=== PATIENT | female | born 1980 | race Caucasian/White ===

== ENCOUNTER 2020-08-04 15:09 | Outpatient (REF) | payer OTHER, SELFPAY ==
--- NOTE | 2020-08-04 10:40 | PAPFT_PTH ---
PATIENT: Alicja Kaminski [id number] AGE/SX: 40/F ROOM: RE08/04/[address]: King Mancia : 1980 BED: DIS: 08/04/2020 SPEC #: [id number] RECD: 08/04/20 17:41 STATUS: DONNY REJw #: [id number] NENO: 08/04/20 10:[address]: King Mancia DEPT: COUNT INCLUDES THE [facility] Cytology RECD BY: Safia Mondragon Tissues: 1 - CX/ENDOCX FOR PAP SMEARS Procedures: PAP THIN PREP/UVM Screening HPV DNA PROBE Comments: [id number]
== END 2020-08-04 15:10 | disposition home or self-care (01) ==
LOC: NCHCN 15:09
PROVIDERS: PCP Physician Assistant Medical; Visit Provider Physician Assistant Medical
DX: Z12.4 Encounter for screening for malignant neoplasm of cervix (principal); Z11.51 Encounter for screening for human papillomavirus (HPV)
CPT/HCPCS: 88142; 87624

== ENCOUNTER 2020-08-31 02:14 | Outpatient (CLI) | payer OTHER, SELFPAY ==
--- NOTE | 2020-08-31 08:50 | DI.MAMMO_ITS ---
EXAM: MG MAMMO SCREENING CLINICAL HISTORY: SCREENING, FORMERLY [facility], 1928–1983,Z00.00,H/O PHYLLODES TUMOR TECHNIQUE: Bilateral full field digital CC and MLO mammographic images were obtained with 3D tomosyn thesis and utilizing computer aided detection (CAD). COMPARISON: Available for comparison. FINDINGS: Masses/Architectural Distortion: There is an asymmetry in the axillary region of the right breast on the MLO view. The patient is status post left lumpectomy. Microcalcifications: No suspicious pleomorphic-type are seen. Skin Thickening/Nipple Retraction: None. IMPRESSION: 1. Asymmetry in the posterior superior right breast on the MLO view. 2. Further evaluation with a spot compression views requested. Ultrasound may be indicated at that t taylor. BI-RADS Category 0 - Assessment Incomplete: Need additional imaging evaluation Breast Density - Category C - Heterogeneously dense Breast density category C or D implies that the patient has dense breast tissue. Dense breast tissue is very common and is not abnormal but dense breast tissue can make it harder to find cancer on a ma mmogram. Also, dense breast tissue may increase their breast cancer risk. This information about the result of the mammogram report was provided to the patient to raise their awareness. Use this report when you speak with the patient about their risks for breast cancer, which includes their family hist ory. At that time, you may recommend for more screening tests (Ultrasound or MRI) as they might be us eful based on their risk. A negative radiographic report should not delay biopsy if a dominant or clinically suspicious mass is present. Up to ten percent of cancers are not identified on mammography. A negative report may reinforce clinical impression. Adenosis and dense breasts may obscure an underlying neoplasm. False positive reports average 6 to 10%. Patient will receive a letter notifying them of these results.
== END 2020-08-31 02:34 ==
PROVIDERS: PCP Physician Assistant Medical; Visit Provider Physician Assistant Medical
DX: Z12.31 Encounter for screening mammogram for malignant neoplasm of breast (principal); Z00.00 Encounter for general adult medical examination without abnormal findings; R92.8 Other abnormal and inconclusive findings on diagnostic imaging of breast
CPT/HCPCS: 77063; 77067

== ENCOUNTER 2020-09-06 02:16 | Outpatient (CLI) | payer OTHER, SELFPAY ==
--- NOTE | 2020-09-06 | DI.US_ITS ---
EXAM: MG MAMMO SCREEN CALL BACK UNI and U/S breast RT limited CLINICAL HISTORY: F/U MAMMO, RT BREAST ASYMMETRY POSTERIOR SUPERIOR RT BREAST. TECHNIQUE: Craniocaudal and mediolateral oblique Full Field Digital Mammography views of the right b reast with Computer Aided Diagnosis followed by Tomosynthesis and right breast ultrasound. COMPARISON: Previous for comparison. FINDINGS: Mammography/Tomosynthesis: Masses/Architectural Distortion: None seen. Microcalcifictions: No suspicious pleomorphic-type are seen. Skin Thickening/Nipple Retraction: None. Right breast US: Echotexture: Normal appearance of the glandular tissue. Shadowing: No suspicious foci. Cyst: There is a cluster of cysts seen at the 9 o'clock position of the right breast 5 cm from the ni pple measuring 0.8 cm in aggregate. No internal blood flow is seen. Solid lesions: There is an ovoid hypoechoic mass seen at the 1 o'clock position of the right breast 8 cm from the nipple. Some of the borders have an irregular contour. It measures 0.8 x 0.6 x 0.8 cm. There does appear to be a small amount of internal blood flow. No posterior acoustic enhancement o r shadowing is seen. Ductal dilation: None. IMPRESSION: 1. 0.8 cm hypoechoic mass in the right breast at the 1 o'clock position 8 cm from the nipple. 2. Biopsy should be considered for further evaluation. 3. The findings were discussed with the patient and primary care physician on the date of the examina tion. BI-RADS Category 4 - Suspicious Abnormality: Biopsy should be considered Breast Density - Category C - Heterogeneously dense Breast density Category C or D implies that the patient has dense breast tissue. Dense breast tissue can make it harder to find cancer on a mammogram. Dense breast tissue is also associated with an incr eased risk of breast cancer. This information about the result of the mammogram report was provided to the patient to raise their awareness. Use this report when you speak with the patient about their risks for breast cancer, which includes their family history. At that time, you may recommend additional screening tests (Ultrasoun d or MRI) as these tests may add significant information. A negative radiographic report should not delay biopsy if a dominant or clinically suspicious mass is present. Up to ten percent of cancers are not identified on mammography. A negative report may reinforce clinical impression. Adenosis and dense breasts may obscure an underlying neoplasm. False positive reports average 6 to 10%. Patient will receive a letter notifying them of these results.
== END 2020-09-06 02:36 ==
PROVIDERS: PCP Physician Assistant Medical; Visit Provider Physician Assistant Medical
DX: Z12.31 Encounter for screening mammogram for malignant neoplasm of breast (principal); R92.8 Other abnormal and inconclusive findings on diagnostic imaging of breast; N63.12 Unspecified lump in the right breast, upper inner quadrant
CPT/HCPCS: 76642; 77063; 77067

== ENCOUNTER 2020-09-12 01:13 | Outpatient (CLI) | payer OTHER, SELFPAY ==
--- NOTE | 2020-09-12 | DI.US_ITS ---
EXAM: US NEEDLE LOCAL BREAST WO RAD CLINICAL HISTORY: RT BREAST MASS, ULTRASOUND GUIDED CORE BX TECHNIQUE: Ultrasound performed using standard protocol. COMPARISON: US US BREAST RT LIMITED from 09/06/2020 FINDINGS: Ultrasound guidance was provided for right breast biopsy performed by Dr. Duong. Please see Dr. Angel manzano procedure note. IMPRESSION: DATA REPOSITORY:
--- NOTE | 2020-09-12 10:55 | BREAST_PTH ---
PATIENT: Alicja Kaminski LOC: [facility] U#:[id number] AGE/SX: 40/F ROOM: RE09/12/[address]: Jamaica Duong MD : 1980 BED: DIS: 09/12/2020 SPEC #: [id number] RECD: 09/12/20 12:50 STATUS: DONNY REQ #: [id number] NENO: 09/12/20 10:[address]: Jamaica Duong DEPT: Surgical Specimen RECD BY: Safia Mondragon ENTERED: 09/12/20 12:50 SP TYPE: Breast OTHR DR: King Mancia Tissues: 1 - BREAST BX NEEDLE Procedures: GROSS AND MICRO LEVEL 4 Comments: [id number]
--- NOTE | 2020-09-12 12:12 | HPE_ITS ---
Date of service: 09/12/20 Time of Service: 12:12 Assessment and Plan Assessment and plan (1) Abnormal mammogram of right breast: Status: Acute Assessment and plan: Mrs. 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 Ultrasound was done and showed an irregular mass with some blood flow at the 1 o'clock position about 8 cm from the nipple. Patient is here in radiology today for core needle biopsy under ultrasound guidance. Risks, benefits, complications were reviewed with her and she wished to proceed. No guarantees were given or implied. Please see procedure note History of Present Illness History of Present Illness Chief Complaint: Right Breast mass Narrative: Mrs. Ta is a pleasant 40 year old female who is referred for a breast biopsy af ter having an abnormal mammogram and ultrasound done. The ultrasound showed some benign-appearing cysts and a irregular mass at 1:00 8 cm from the nipple of the right breast. 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 She underwent 2 surgeries to remove it completely. Phyllodes tumors to have a high risk of recurrence but usually in the same breast. She denies any nipple discharge, skin changes or pain in the right breast. She is unable to find or palpate the lesion. Review of Systems Constitutional Constitutional: Denies fever(s), Denies headache(s), Denies poor appetite and Denies weight loss Eyes Eyes: Denies change in vision ENT Ears, Nose, Mouth, and Throat: Denies headache(s) and Denies hoarseness Cardiovascular Cardiovascular: Denies chest pain, Denies irregular heart rhythm, Denies palpitations and Denies dyspnea Respiratory Respiratory: Denies cough and Denies dyspnea Gastrointestinal Gastrointestinal: Reports system reviewed and no additional complaints, except as documented Genitourinary Genitourinary: Reports system reviewed and no additional complaints, except as documented Neurologic Neurologic: Denies headache(s) Endocrine Endocrine: Reports system reviewed and no additional complaints, except as documented and Denies palpitations FOR[facility]LY [facility] Medical History (Updated 09/12/20 @ 12:22 by Jamaica Duong MD) Family history of colon cancer Hip pain, left 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 Surgical History (Updated 09/12/20 @ 12:19 by Jamaica Duong MD) History of lumpectomy of left breast Family History (Updated 09/12/20 @ 12:20 by Jamaica Duong MD) Other Colon cancer Social History (Updated 09/12/20 @ 12:20 by Jamaica Duong MD) Smoking/Tobacco Use Status: Never Smoking risk assessment performed?: Yes Alcohol Intake: current Alcohol Intake frequency: a few times a week Drug use: Never Female Reproductive History Menstrual Age of Menarche: 12 Exam Const General: cooperative, comfortable and no acute distress Orientation: alert and oriented x3 HENMT Head: normocephalic and atraumatic Chest Chest: normal inspection of the chest Breast inspection: normal inspection of the breasts Procedures Other Procedure Description/Findings: Pre-op Dx: Right Breast Mass Post-op Dx: same Surgeon: Alfa Duong MD Anesthesia: Local anesthesia with 1% Lidocaine Blood loss: 2 cc Specimen: Core needle biopsy Complications: no immediate complications Procedure: After informed consent was obtained the patient was placed in a supine position. Us was done of the right Breast and the lesion was localized by the US tech. The skin was cleaned with alcohol and infiltrated with the above local anesthetic. The skin was then prepped. An incision was made with an 11 blade. Using a 14 gauge core needle 2 specimens were removed and placed on telfa and placed in formalin. A small titanium clip was then placed into the lesion under US guidence. The skin was cleaned and dried and a band aid was applied. The patient tolerated the procedure well and there were no immediate complications.
== END 2020-09-12 01:33 ==
PROVIDERS: PCP Physician Assistant Medical; Visit Provider Surgery
DX: R92.8 Other abnormal and inconclusive findings on diagnostic imaging of breast (principal)
CPT/HCPCS: 19083; 88305; 99222; 76942

== ENCOUNTER 2020-10-20 01:42 | Outpatient (CLI) | payer OTHER, SELFPAY ==
[2020-10-20 10:14] LABS: Source Nasal/Nares
[2020-10-20 13:30] LABS: COVID-19 PCR Negative (Negative)
== END 2020-10-20 01:43 | disposition home or self-care (01) ==
LOC: LBO 01:42
PROVIDERS: PCP Physician Assistant Medical; Visit Provider Surgery
DX: Z20.822 Contact with and (suspected) exposure to COVID-19 (principal); Z01.818 Encounter for other preprocedural examination
CPT/HCPCS: 87635

== ENCOUNTER 2020-10-23 11:10 | Day surgery (SDC) | payer OTHER, SELFPAY ==
--- NOTE | 2020-10-23 06:55 | COLE_ITS ---
Date of service: 10/23/20 Time of Service: 12:01 Colonoscopy Report Date of procedure: 10/23/20 Pre-op diagnosis general: Colon Cancer Screening, Family history Post-op diagnosis procedure note: same (Grade 1 internal hemorrhoids) Procedure: Colonoscopy Surgeon: Jamaica Duong Anesthesia Type: General:No Airway (ASA 2/ Keke Acosta CRNA) Estimated blood loss (mL): 0 Pathology: none sent Complications: None Disposition: same day Indications: The patient is here for Colonoscopy pre-op. She denies a family history of colon cancer, however states that both her maternal grandmother and mother both had portions of the colon removed secondary to polyps. She has not had any bowel habit changes. -Discussed colonoscopy bowel prep as well as the procedure. Discussed possible complications of the procedure to include bleeding, pain, perforation, missed small lesion/polyp, sore throat, aspiration and adverse reaction to the medications. Questions were answered to patient?s satisfaction. No guarantees were implied or given. Prep: Miralax/Dulcolax Procedure Start Time: 12:01 Procedure End Time: 12:23 Retraction Time: 11 minutes Findings: Normal colon Procedure Description: After informed consent was obtained the patient was taken to the procedure room and placed in a left decubitous position. Monitors were applied and a time out was done. The patients name, date of , procedure, allergies to medications and metal in their body was reviewed. The patient was then sedated. Once sedated and comfortable a rectal exam was done. External exam was normal. Internal exam revealed a normal sphincter tone and no palpable masses. The scope was then introduced and retro-flexed. Grade 1 internal hemorrhoids were identified on retro-flexion. No Polyps or masses were identified on retro- flexion. The scope was then advanced to the cecum without difficulty. The ileocecal vlave and appendiceal orifice were identified. The prep was good. The scope was then slowly retracted over 11 minutes back into the rectum. There were no polyps and no diverticulosis noted. The scope was removed and the patient was woken up and taken back to Same day surgery in stable condition. The patient tolerated the procedure well and there were no immediate complications. Follow up: The patient should follow up in 5 years unless they develop changes in bowel habits or other new gastrointestinal complaints.
--- NOTE | 2020-10-23 06:56 | W.PM.DSUDISC ---
Discharge Plan Disposition Patient Disposition: HOME Condition: Good Discharge Details Reason For Visit: Colonoscopy Attending Provider: Jamaica Duong Primary Care Provider: King Mancia Home Meds and New Rx's Prescriptions: Continued Pb Assist RF: 0 Discharge Instructions Additional Instructions: Findings: Normal colonoscopy Follow up: 5 years because of your family history Please call if you develop: fevers >101.5 Nausea or Vomiting Abdominal pain that is not transient Rectal bleeding that is more then a tbsp A hard abdomen and inability to pass gas DAY SURGERY UNIT POST ENDOSCOPY INSTRUCTIONS Instructions for everyone who is given Anesthesia: For your safety, please do the following for the next 24 Hours: a. Do not drive or operate dangerous equipment b. Do not drink alcohol beverages or use any recreational drugs for the first 24 hours or while taking pain medications. The medications in your body may have a reaction that can be dangerous. c. Do not make any important decisions or sign any important papers 1. Generally there are no restrictions on your activity after a day or so has gone by, but you may feel a bit fatigued for a few days. 2. After you arrive home you may have a light meal and return to a normal diet as you can tolerate it without feeling sick to your stomach. 3. After surgery, you may feel pain or discomfort. This should be only transient, but if it persists please contact your doctor. 4. If there are any questions regarding the findings of your procedure, please feel free to contact your doctor. 6. If you are unable to contact your doctor with a problem, contact the hospital at [phone]. 7. Continue all your regular medications unless directed otherwise. I understand the above instructions and have no questions. Signature of Patient or Responsible Adult Escort Date/Time Name of Responsible Adult Escort Signature of Nurse Date/Time Activity:: Activity as Tolerated Diet:: As Tolerated Discharge Orders Discharge Orders: Discharge Order (Routine); Ordered 10/23/20 Ordered By: Jamaica Duong
--- NOTE | 2020-10-23 09:08 | W.ANESPRE ---
General Info Date of Service This is a Shared Provider Document. All providers who document on this will be required to sign document once completed. Please Communicate with Team Date Performed: 10/23/20 Height: 5 ft 4 in Weight: 62.823 kg Body Mass Index (BMI): 23.8 Surgical Procedure: Operation Date: 10/23/20 12:35 Proposed Procedures Side Surgeon p Colonoscopy Jamaica Duong MD Vital Signs and Lab Results Point of Care Results Nursing Point of Care Results: No Data to Display Lab Results Blood Type / Crossmatch: No Data to Display Complete Blood Count: No Data to Display Complete Metabolic Panel: No Data to Display Liver Function Panel: No Data to Display Coagulation Panel: No Data to Display Cardiac Panel: No Data to Display Arterial Blood Gas: No Data to Display Venous Blood Gas: No Data to Display Pancreas Panel: No Data to Display Thyroid Panel: No Data to Display Infectious Disease: Coronavirus (COVID-19)(PCR) Negative (Negative) 10/20/20 08:54 10/20/20 Coronavirus 2019 Source Nasal/nares 10/20/20 08:54 10/20/20 Blood Cultures: Blood Culture Toxicology Panel: No Data to Display Panel: No Data to Display PFSH Medical History Family history of colon cancer Hip pain, left 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 Surgical History History of lumpectomy of left breast Social History (Updated 10/13/20 @ 12:06 by YOGESH Oquendo) Smoking/Tobacco Use Status: Former Tobacco Use Quit Date: 06/30/10 Smoking risk assessment performed?: Yes Alcohol Intake: current Alcohol Intake frequency: a few times a week Drug use: Occasionally Substance use type: marijuana Do you feel safe at home: Yes Do you feel safe in your relationship?: Yes Meds Allergies and Home Medications Allergies Allergy/AdvReac Type Severity Reaction Status Date / Time No Known Allergies Allergy Verified 10/20/20 09:00 Current Visit Medication Generic Name Dose Route Start Last Admin Trade Name Freq PRN Reason Stop Dose Admin Hyoscyamine Sulfate 0.125 mg 10/23/20 06:57 Hyoscyamine 0.125 Mg Sl/Oral/Chew SL DIRECTED PRN Ringer's Solution 1,000 mls @ 80 mls/hr 10/23/20 06:00 IV 11/19/20 23:59 INFUSION [facility] IV Miscellaneous Supplies 1 each 10/23/20 06:00 Iv Access IV 11/19/20 23:59 DIRECTED [facility] Ondansetron HCl 4 mg 10/23/20 06:57 Ondansetron 4 Mg/2 Ml Vial IVP Q4H PRN PRN Nausea / Vomiting Sodium Chloride 0 ml 10/23/20 06:00 Normal Saline Flush 10 Ml Syr IV 11/19/20 23:59 PRN PRN Sodium Chloride 0 ml 10/23/20 06:00 Normal Saline 10 Ml Vial IJ 11/19/20 23:59 DIRECTED PRN Sterile Water 0 ml 10/23/20 06:00 Water,Injection,Sterile 10 Ml Vial IJ 11/19/20 23:59 DIRECTED PRN Home Medication Medication Instructions Recorded Unknown [No Known Home Meds] 10/13/20
--- NOTE | 2020-10-23 11:09 | W.ANESPRE ---
Anesthesia Assessment and Plan Anesthesia History Personal History: No History of Anesthesia Complications Family History: No Family History of Anesthesia Complications Exercise Tolerance Exercise Tolerance: Metabolic Equivalents>4 Pertinent Negatives Pertinent Negatives: No Symptoms of GERD Cardiac & Pulmonary Exam Cardiac Exam: Normal S1/S2 Heart Sounds Pulmonary Exam: Clear Bilateral Breath Sounds Airway Exam Known Difficult Airway: No Mallampati Class: 2 Mouth Opening: Normal (> 3cm) Thyromental Distance: Greater than 3 cm Neck Range of Motion: Full ROM Neck Circumference: Normal Teeth Condition: Normal Dentition ASA Classification ASA Score: ASA 2 ASA Emergency: No NPO Status NPO Status: NPO Clears >2 hours, Solids >8 hours Status Status: Negative HCG Anesthesia Plan Anesthesia Technique: General Anesthesia Airway Planned: Natural Airway Pain Management: Surgeon and patient request nerve block Monitors Used: Standard Monitors General Info Date of Service This is a Shared Provider Document. All providers who document on this will be required to sign document once completed. Please Communicate with Team Date Performed: 10/23/20 Height: 5 ft 4 in Weight: 62.823 kg Body Mass Index (BMI): 23.8 Surgical Procedure: Operation Date: 10/23/20 12:35 Proposed Procedures Side Surgeon p Kashif Duong MD Vital Signs and Lab Results Vital Signs Most Recent Vital Signs in EMR: Temp Pulse Resp BP Pulse Ox 36.2 C L 77 16 108/64 97 10/23/20 11:27 10/23/20 11:27 10/23/20 11:27 10/23/20 11:27 10/23/20 11:27 Point of Care Results Nursing Point of Care Results: No Data to Display Lab Results Blood Type / Crossmatch: No Data to Display Complete Blood Count: No Data to Display Complete Metabolic Panel: No Data to Display Liver Function Panel: No Data to Display Coagulation Panel: No Data to Display Cardiac Panel: No Data to Display Arterial Blood Gas: No Data to Display Venous Blood Gas: No Data to Display Pancreas Panel: No Data to Display Thyroid Panel: No Data to Display Infectious Disease: Coronavirus (COVID-19)(PCR) Negative (Negative) 10/20/20 08:54 10/20/20 Coronavirus 2019 Source Nasal/nares 10/20/20 08:54 10/20/20 Blood Cultures: Blood Culture Toxicology Panel: No Data to Display Panel: No Data to Display PFSH Active Problems Active Problems: Problem Status Onset Code Abnormal mammogram of right breast R92.8 Medical History Family history of colon cancer Hip pain, left 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 Surgical History History of lumpectomy of left breast Social History (Updated 10/13/20 @ 12:06 by YOGESH Oquendo) Smoking/Tobacco Use Status: Never Smoking risk assessment performed?: Yes Alcohol Intake: current Alcohol Intake frequency: a few times a week Drug use: Never Substance use type: marijuana Do you feel safe at home: Yes Do you feel safe in your relationship?: Yes Meds Allergies and Home Medications Allergies Allergy/AdvReac Type Severity Reaction Status Date / Time No Known Allergies Allergy Verified 10/23/20 11:23 Home Medication Medication Instructions Recorded Pb Assist 10/23/20 Current Visit Medications: Current Medications Generic Name Dose Route Start Last Admin Trade Name Bertoq PRN Reason Stop Dose Admin Hyoscyamine Sulfate 0.125 mg 10/23/20 06:57 Hyoscyamine 0.125 Mg Sl/Oral/Chew SL DIRECTED PRN Ringer's Solution 1,000 mls @ 80 mls/hr 10/23/20 06:00 IV 11/19/20 23:59 INFUSION [facility] IV Miscellaneous Supplies 1 each 10/23/20 06:00 Iv Access IV 11/19/20 23:59 DIRECTED [facility] Ondansetron HCl 4 mg 10/23/20 06:57 Ondansetron 4 Mg/2 Ml Vial IVP Q4H PRN PRN Nausea / Vomiting Sodium Chloride 0 ml 10/23/20 06:00 Normal Saline Flush 10 Ml Syr IV 11/19/20 23:59 PRN PRN Sodium Chloride 0 ml 10/23/20 06:00 Normal Saline 10 Ml Vial IJ 11/19/20 23:59 DIRECTED PRN Sterile Water 0 ml 10/23/20 06:00 Water,Injection,Sterile 10 Ml Vial IJ 11/19/20 23:59 DIRECTED PRN
[2020-10-23 11:27] VITALS: BP 108/64; PULSE 77; RESP 16; TEMP 36.2; O2SAT 97
[2020-10-23 11:42] VITALS: BMI 23.8
[2020-10-23] MEDS: Lactated Ringers 1,000 ML 80 ML IV (11:45)
[2020-10-23 12:31] VITALS: BP 93/61; PULSE 71; RESP 16; TEMP 36.3; O2SAT 100
--- NOTE | 2020-10-23 12:43 | W.ANESPOSTOP ---
Postoperative Evaluation Date, Time and Location Date Performed: 10/23/20 Time Performed: 12:45 Patient Location: Day Surgery Unit Vital Signs Most Recent Imported Vital Signs: Most Recent Vital Signs Temp Pulse Resp BP Pulse Ox 36.3 C L 71 16 93/61 L 100 10/23/20 12:31 10/23/20 12:31 10/23/20 12:31 10/23/20 12:31 10/23/20 12:31 Assessment Mental Status: Awake (Alert & Oriented to Patient Baseline) Airway and Respiratory Function: Patent airway with normal (patient baseline) respiratory exam Cardiovascular Function: Hemodynamically Stable Hydration Status: Adequately Hydrated Nausea & Vomiting: No Nausea or Vomiting Pain: Pt. Denies Any Pain Peripheral Nerve Block: Patient did not receive a nerve block
[2020-10-23 13:04] VITALS: BP 100/63; PULSE 53; RESP 16; TEMP 36.5; O2SAT 98
== END 2020-10-23 13:30 | disposition home or self-care (01) ==
LOC: SUR 11:10
PROVIDERS: PCP Physician Assistant Medical; Visit Provider Surgery
PROC: 0DJD8ZZ Inspection of Lower Intestinal Tract, Via Natural or Artificial Opening Endoscopic (ICD-10-PCS; CPT 45378; principal; 2020-10-23 12:30)
DX: Z12.11 Encounter for screening for malignant neoplasm of colon (principal); K64.0 First degree hemorrhoids; Z83.71 Family history of colonic polyps
CPT/HCPCS: 45378; 81025; J2001

== ENCOUNTER 2021-07-18 01:58 | Outpatient (CLI) | payer OTHER, SELFPAY ==
[2021-07-19 00:41] LABS: COVID-19 RT-PCR UVMMC Result Negative (Negative)
== END 2021-07-18 01:59 | disposition home or self-care (01) ==
PROVIDERS: PCP Physician Assistant Medical; Visit Provider Nurse Practitioner Family
DX: Z20.822 Contact with and (suspected) exposure to COVID-19 (principal)
CPT/HCPCS: U0003

== ENCOUNTER 2021-08-06 16:43 | Outpatient (REF) | payer OTHER, SELFPAY ==
[2021-08-07 10:32] LABS: Lyme Ab w Rflx to Lyme Confirm Negative (Negative)
[2021-08-08 00:23] LABS: Anaplasma phagocytophilum Negative (Negative); B. miyamotoi PCR Negative (Negative); Babesia divergens/MO-1 Negative (Negative); Babesia duncani Negative (Negative); Babesia microti Negative (Negative); Ehrlichia chaffeensis Negative (Negative); Ehrlichia ewingii/canis Negative (Negative); Ehrlichia muris eauclairensis Negative (Negative)
== END 2021-08-06 16:44 | disposition home or self-care (01) ==
LOC: NCHCN 16:43
PROVIDERS: PCP Physician Assistant Medical; Visit Provider Physician Assistant Medical
DX: W57.XXXA Bitten or stung by nonvenomous insect and other nonvenomous arthropods, initial encounter (principal); T14.8XXA Other injury of unspecified body region, initial encounter
CPT/HCPCS: 87798; 86618

== ENCOUNTER → 2022-03-19 00:54 | Outpatient (CLI) | payer OTHER, SELFPAY ==
--- NOTE | 2022-03-19 10:05 | DI.US_ITS ---
Exam(s) MG MAMMO DIAGNOSTIC UNI US BREAST RT COMPLETE EXAM: MAMMO DIAGNOSTIC UNI -RIGHT AND COMPLETE RIGHT BREAST ULTRASOUND CLINICAL HISTORY: BREAST LUMP OR MASS, N63.0. TECHNIQUE: IN LATERAL RIGHT CC AND MLO mammographic images were obtained with 3D tomosynthesis techn ique and utilizing computer aided detection (CAD). Also performed spot compression views of the righ t breast. COMPLETE RIGHT BREAST ULTRASOUND was performed including all 4 quadrants as well as the retroareolar region. COMPARISON: Prior mammograms were reviewed, the most recent being August 2020. This 41-year-old patient feels a new lump in the right breast. 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 FINDINGS: DIAGNOSTIC RIGHT BREAST MAMMOGRAM: The fibroglandular tissue is again noted to be moderately dense, this somewhat decreasing sensitivity mammogram for finding hidden underlying lesions. There is no a biopsy marker clip in the posterior aspect of the right breast, this adjacent to a nodu lar density which underwent previous biopsy (and does not correspond to her newly palpable abnormalit y). Laterally there is a suggestion of a nodular density on the 3D cc imaging view, this measuring a pproximately 1.8 by 1.9 cm. More evident on the CC than the MLO 3D images. Posteriorly on the 3D ML O images there is a 1.2 x 1.1 cm density again suggest wall, more prominent than previous. No malignant-appearing microcalcification groups in the right breast. No obvious architectural disto rtion or skin thickening-traction. COMPLETE RIGHT BREAST ULTRASOUND: There are multiple findings... At the 2 o'clock position there is a 3 x 2 millimeter microcyst. At the 1 o'clock position there is a well-defined wider than taller 7 x 4 millimeter nodule, unchange d from prior ultrasound of 09/12/2020 and what most probably underwent ultrasound-guided core biopsy. This exhibits neutral through transmission. At the 8 o'clock position there is a 4 millimeter microcyst. At the 9 o'clock position there is a conglomeration of microcysts measuring 8 x 5 millimeters. At the 11 o'clock position there is a concerning finding which corresponds to what this patient is juan patel. This is a solid well-defined slightly lobulated roundish lesion measuring 1.8 x 1.5 cm and exh ibiting slightly increased through transmission. This requires biopsy. IMPRESSION: 1. At the 11 o'clock position of the right breast (7 cm from nipple) there is a well-defined 1.8 x 1. 5 cm slightly lobulated solid nodule which corresponds to what this patient feels. This solid nodule is suspicious and requires biopsy. Possible malignancy versus possible phyllodes tumor in this patien t who has already had a phyllodes tumor removed from her opposite-left breast. 2. At the 1 o'clock position there is a well-defined 7 x 4 millimeter smaller solid nodule which is u nchanged from prior ultrasound of 09/12/2020 and what most probably underwent core biopsy with appare nt benign diagnosis. This has not increased in size from the ultrasound of August 2020. 3. The other findings in the breasts are benign microcysts. Appropriate follow-up, as discussed by myself with the patient today, is biopsy of the finding at the 11 o'clock position of the right breast (which corresponds to a new palpable finding).. Findings are recommendations for biopsy to called by myself to this patient's referring physician. The patient was informed of the findings and follow-up recommendations prior to [facility] the [facility] today. BI-RADS Category 4 - Suspicious Abnormality: Biopsy should be considered Breast Density - Category C - Heterogeneously dense Breast density Category C or D implies that the patient has dense breast tissue. Dense breast tissue can make it harder to find cancer on a mammogram. Dense breast tissue is also associated with an incr eased risk of breast cancer. This information about the result of the mammogram report was provided to the patient to raise their awareness. Use this report when you speak with the patient about their risks for breast cancer, which includes their family history. At that time, you may recommend additional screening tests (Ultrasoun d or MRI) as these tests may add significant information. A negative radiographic report should not delay biopsy if a dominant or clinically suspicious mass is present. Up to ten percent of cancers are not identified on mammography. A negative report may reinforce clinical impression. Adenosis and dense breasts may obscure an underlying neoplasm. False positive reports average 6 to 10%. Patient will receive a letter notifying them of these results.
== END ==
PROVIDERS: PCP Physician Assistant Medical; Visit Provider Physician Assistant Medical
DX: R92.8 Other abnormal and inconclusive findings on diagnostic imaging of breast (principal); N63.11 Unspecified lump in the right breast, upper outer quadrant
CPT/HCPCS: 76642; 77061; 77065; G0279

== ENCOUNTER → 2022-04-01 01:41 | Outpatient (CLI) | payer OTHER, SELFPAY ==
--- NOTE | 2022-04-01 08:15 | DI.US_ITS ---
Exam(s) US NEEDLE LOCAL BREAST WO RAD EXAM: US NEEDLE LOCAL BREAST WO RAD CLINICAL HISTORY: abnormal breast mass r/o malignancy,ULTRASOUND GUIDED BIOPSY.R92.8. Right Breas t. Left Breast. TECHNIQUE: Ultrasound was provided for the referring physician for guidance performing ultrasound gu ided biopsy of previously noted breast mass. COMPARISON: MG MG MAMMO DIAGNOSTIC UNI from 03/19/2022 US US BREAST RT COMPLETE from 03/19/2022 FINDINGS: Images show needle extending into the lesion. Later images show clip placement within the mass. Usha hernandez see procedure note for details. IMPRESSION: Successful Ultrasound-guided Breast Biopsy.
--- NOTE | 2022-04-01 14:55 | BREAST_PTH ---
PATIENT: Alicja Kaminski LOC: [facility] U#:[id number] AGE/SX: 45/F ROOM: RE04/01/[address]: Jamaica Duong MD : 1980 BED: DIS: SPEC #: [id number] RECD: 04/01/22 16:37 STATUS: DONNY REJw #: [id number] NENO: 04/01/22 14:[address]: Jamaica Duong DEPT: Surgical Specimen RECD BY: Safia Mondragon ENTERED: 04/01/22 16:38 SP TYPE: Breast OTHR DR: King Mancia Tissues: 1 - BREAST BX NEEDLE Procedures: GROSS AND MICRO LEVEL 4 Comments: [id number]
--- NOTE | 2022-04-03 13:43 | W.PROCNOTE ---
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 She has already had one prior biopsy of the right Breast. Discussed the procedure with her again as well as the risks and complications Procedure Description: Pre-op Dx: Right Breast Mass Post-op Dx: same Procedure: US guided Core needle biopsy of right Breast Surgeon: Alfa Duong MD Anesthesia: Local anesthesia with 1% Lidocaine Blood loss: 2 cc Specimen: Core needle biopsy Complications: no immediate complications Procedure: After informed consent was obtained the patient was placed in a supine position. US was done of the Breast and the lesion was localized by the US tech. The lesion was located at 10 o'clock and was palpable. The skin was cleaned with alcohol and infiltrated with the above local anesthetic. The skin was then prepped with iodine. An incision was made with an 11 blade. Using a 14 gauge core needle 3 specimens were removed and placed on telfa and placed in formalin. A titanium clip was then placed inro the mass under US guidence as well. The skin was cleaned and dried and a band aid was applied. The patient tolerated the procedure well and there were no immediate complications.
== END ==
PROVIDERS: PCP Physician Assistant Medical; Visit Provider Surgery
DX: R92.8 Other abnormal and inconclusive findings on diagnostic imaging of breast (principal); N60.31 Fibrosclerosis of right breast
CPT/HCPCS: 19083; 88305; 76942

== ENCOUNTER 2023-01-08 19:03 | Outpatient (REF) | payer OTHER, SELFPAY ==
[2023-01-08 20:03] LABS: Abs Immature Grans 0.03 10^3/uL (0.0-0.06); Absolute Basophil Count 0.05 10^3/uL (0.0-0.2); Absolute Eosinophil Count 0.14 10^3/uL (0.0-0.7); Absolute Lymphocyte Count 2.57 10^3/uL (1.2-3.4); Absolute Monocyte Count 0.56 10^3/uL (0.1-0.8); Absolute Neutrophil Count 5.13 10^3/uL (1.2-6.7); Basophils % 0.6; Eosinophils % 1.7; HCT 38.9 % (36.0-46.0); HGB 12.9 g/dL (11.2-15.7); Immature Grans % 0.4; Lymphocytes % 30.3; MCH 30.4 pg (27.0-33.0); MCHC 33.2 % (32.0-36.0); MCV 92 fL (80-95); MPV 9.6 fL (8.0-11.0); Monocytes % 6.6; Neutrophils % 60.4; Platelet Count 329 10^3/uL (130-400); RBC 4.24 10^6/uL (3.93-5.22); RDW 12.6 % (11.7-14.6); RDW-SD 42.2 fL; WBC 8.48 10^3/uL (4.4-10.8)
[2023-01-08 20:22] LABS: TSH (W/Ref FT4) 1.49 uIU/mL (0.36-3.74)
== END 2023-01-08 19:04 | disposition home or self-care (01) ==
LOC: NCHCN 19:03
PROVIDERS: PCP Physician Assistant Medical; Visit Provider Physician Assistant Medical
DX: N94.6 Dysmenorrhea, unspecified (principal)
CPT/HCPCS: 84443; 85025

== ENCOUNTER 2023-01-24 19:51 | Emergency (ER) | payer OTHER, SELFPAY ==
[2023-01-24 20:03] VITALS: BP 132/61; PULSE 60; RESP 16; O2SAT 100
--- NOTE | 2023-01-24 20:15 | DI.CT_ITS ---
Exam(s) CT ABDOMEN PELVIS W EXAM: CT ABDOMEN PELVIS W CLINICAL HISTORY: right lower abdominal pain. TECHNIQUE: Imaging Protocol: Axial computed tomography images with coronal and sagittal reformatted images were created and reviewed CONTRAST MATERIAL: Intravenous: Omnipaque-350 100cc Oral: None COMPARISON: No exams were available for comparison FINDINGS: VISUALIZED LUNG BASES: No nodules nor pleural effusions evident. ABDOMEN: There is no ascites. LIVER: There are no focal hepatic lesions evident. No dilated intrahepatic ducts. GALLBLADDER/BILIARY: Gallbladder mildly contracted. CBD is not dilated. PANCREAS: No evidence of pancreatic mass nor dilatation of the pancreatic duct. SPLEEN: Spleen is not enlarged. No obvious intrasplenic lesions. Splenic and portal veins are paten t. ADRENALS: There are no significant adrenal masses. KIDNEYS:There is a benign cyst in the left kidney which measures 1.9 x 1.4 cm. No further evaluation necessary. No other focal renal findings. No calculi. No hydronephrosis. No solid renal masses.. ABDOMINAL AORTA: Abdominal aorta is not enlarged. LYMPH NODES:There is no retroperitoneal nor paraaortic adenopathy. ABDOMINAL WALL: No evidence of significant anterior abdominal wall nor inguinal hernia. GI: There are multiple loops of gas and fluid-filled small bowel with upper normal diameters, possibl y related to enteritis. No evidence of small-bowel obstruction. Colon is not collapsed. PELVIS: GI: No evidence of appendicitis.No evidence of sigmoid diverticulitis. LYMPH NODES: There is no intrapelvic nor inguinal adenopathy. REPRODUCTIVE: Air column in the vagina consistent with tampon. Uterus is retroverted. There is a fo llicular cyst in the right ovary measuring 1.4 x 1.3 cm. No free fluid. URINARY BLADDER: No calculi nor obvious masses evident OSSEOUS: No fractures. There is a well-circumscribed bone lesion with thin peripheral sclerosis bord er in the left ilium, most probably a benign bone lesion given its appearance and no associated corti lew breakthrough. This measures 2.3 by 1.5 by 2.5 cm. IMPRESSION: 1. There are multiple loops of upper normal limits diameter gas and fluid-filled small bowel. May re present enteritis. There is no evidence of bowel obstruction, free air, nor abscess. 2. Evidence of appendicitis nor diverticulitis. 3. There is a 14 x 13 mm cyst in the right ovary, most probably follicular. 4. Benign-appearing bone lesion in the left iliac bone. RADIATION DOSE DELIVERED: 639.54mGy.cm Total DLP DATA REPOSITORY: All CT scans at this facility are submitted to the National Radiology Data Registry (NRDR) Dose Index Registry (DIR) with the [employer] (A[employer]). RADIATION OPTIMIZATION: All CT scans at this facility use at least one of these dose optimization te chniques: automated exposure control; mA and/or kV adjustment per patient size (includes targeted exa ms where dose is matched to clinical indication); or iterative reconstruction.
--- NOTE | 2023-01-24 20:17 | ED.GENADUL_ITS ---
Discharge Plan Disposition Patient Disposition: Home Condition: Stable Discharge Details Clinical Impression: Abdominal pain, Enteritis Primary Care Provider: King Mancia ED Provider: Rell Holloway Home Meds and New Rx's Prescriptions: New ondansetron 4 mg tablet,disintegrating 4 mg PO Q8H PRN (Reason: nausea and vomiting) Qty: 30 0RF amoxicillin-pot clavulanate 875-125 mg tablet 1 tab PO BID Qty: 14 0RF Continued Pb Assist acetylcysteine 600 mg capsule Patient Comments: TAKE 2 CAPSULES BY MOUTH IN THE MORNING AND 2 CAPSULES IN THE AFTERNOON/EVENING IF NEEDED FOR MOOD Discontinued amoxicillin 875 mg tablet 875 mg PO BID Discharge Instructions Instructions: Abdominal Pain (ED) Additional Instructions: Your cat scan showed a normal appearing appendix, you do have evidence of an enteritis which is inflammation of the bowel, this normally resolves in a few days if you feel more ill, have severe worsening pain or persistent vomiting return to the emergency department you can take 1000mg tylenol and 600mg ibuprofen every 6 hours for pain as needed if not better within a week follow up with your primary care provider Medical Decision Making 42 yo female with no significant pmhx or surgical history comes in with right lower abdominal pain slowly worsening since 2pm and nausea. Denies fevers, chills, vomiting. She has not had any urinary symptoms. ARrives stable speaking clearly in no distress. She has a soft abdomen, only area that is tender with palpation is the right lower abdomen with guarding. No rashes or lesions noted. Suspect appendicitis, will proceed with cbc, cmp, lipase and ct abdomen/pelvis to further evaluate labs and imaging urnemarkble other then an enteritis with nondilated gas and fluid filled small bowel, she is feeling much better, minimal rlq tenderness, also noted small right ovarian cyst.She is currently on amoxicillin for a dental issue, will switch her to augmentin, advised to f/u with pcp and return precautions given Differential Diagnosis Differential Diagnosis: appendicitis, pancreatitis, ovarian cyst Imaging Data Radiologic Study: Attestation: I personally reviewed and interpreted this imaging study as follows: Imaging: X-Ray Radiologist's impression: IMPRESSION: 1. Several loops of nondilated, gas and fluid-filled small bowel, which is a nonspecific finding, but can be seen with enteritis. 2. 15 mm right ovarian cyst. Lab Data Lab results reviewed: Yes I reviewed the patient's lab results. HPI General Mode of arrival: ambulatory . Date/Time Provider Initiated Documentation: 01/24/23 19:53 . Limitations to Documentation: no limitations . Information obtained by: patient . History of Present Illness 42 year old F presents to the emergency department with the chief complaint of right lower abdominal pain, described as severe, Quality is described as sharp, Patient started experiencing this hour(s) (6) and it has been constant. No relieving factors improve symptom(s), No exacerbating factors reported . Patient notes denies chest pain, fever/chills and shortness of breath. Patient did receive the following treatments prior to arrival, none Related Data Home Medications Medication Instructions Recorded Confirmed Pb Assist 10/23/20 acetylcysteine 600 mg capsule mg 01/24/23 amoxicillin 875 mg-potassium 1 tab PO BID #14 tabs 01/24/23 clavulanate 125 mg tablet ondansetron 4 mg disintegrating 4 mg PO Q8H PRN nausea and 01/24/23 tablet vomiting #30 tabs Previous Rx's Medication Instructions Recorded amoxicillin 875 mg-potassium 1 tab PO BID #14 tabs 01/24/23 clavulanate 125 mg tablet ondansetron 4 mg disintegrating 4 mg PO Q8H PRN nausea and 01/24/23 tablet vomiting #30 tabs Allergies Allergy/AdvReac Type Severity Reaction Status Date / Time No Known Allergies Allergy Verified 01/24/23 20:07 General Stated Complaint: Abd Prob JEWEL: 3 Review of Systems All systems reviewed & are unremarkable except as noted in HPI and below Constitutional Constitutional: Denies chills, Denies fever(s) and Denies weakness Cardiovascular Cardiovascular: Denies chest pain and Denies dyspnea Respiratory Respiratory: Denies cough and Denies dyspnea Gastrointestinal Gastrointestinal: Reports abdominal pain, Reports nausea and Denies vomiting Genitourinary Genitourinary: Denies dysuria Musculoskeletal Musculoskeletal: Denies joint swelling Integumentary/Breasts Skin/Breast: Denies rash Neurologic Neurologic: Denies weakness PFSH All Active Problems (Updated 01/24/23 @ 21:44 by Rell Holloway MD) Abdominal pain (Acute) Enteritis (Acute) Abnormal mammogram of right breast (Acute) Medical History (Updated 01/24/23 @ 21:44 by Rell Holloway MD) Family history of colon cancer Hip pain, left 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 Surgical History (Updated 10/27/20 @ 13:57 by Mercy Cheema) History of colonoscopy (~09/2020) History of lumpectomy of left breast Family History Other Colon cancer Social History (Updated 10/13/20 @ 12:06 by YOGESH Oquendo) Smoking/Tobacco Use Status: Never Smoking risk assessment performed?: Yes Alcohol Intake: current Alcohol Intake frequency: a few times a week Drug use: Occasionally Substance use type: marijuana Do you feel safe at home: Yes Do you feel safe in your relationship?: Yes Female Reproductive History Menstrual Age of Menarche: 12 Exam Const General: no acute distress Orientation: alert HENMT Head: normal to inspection Ears: external ears normal General nose exam: external nose normal Mouth: moist mucous membranes Eyes General: appearance normal, both eyes and all related structures Neck Neck: normal visual inspection Resp Effort & Inspection: normal respiratory effort and able to speak in complete sentences Cardio Rate: regular rate GI Palpation: soft and tender Skin General skin exam: no rashes or lesions noted Neuro General: patient alert and patient oriented x3 Extrem General: normal to inspection Psych Mental Status: mental status grossly normal Course Vital Signs Vital signs: Vital Signs Pulse 60 01/24/23 20:03 Respiratory Rate 16 01/24/23 20:03 Blood Pressure 132/61 01/24/23 20:03 Pulse Oximetry 100 01/24/23 20:03 Temperature Source Oral 01/24/23 20:03 Pulse 60 01/24/23 20:03 Respiratory Rate 16 01/24/23 20:03 Respiratory Effort Normal 01/24/23 20:03 Blood Pressure 132/61 01/24/23 20:03 Blood Pressure Position Sitting 01/24/23 20:03 Pulse Oximetry 100 01/24/23 20:03 Oxygen Delivery Method Room Air 01/24/23 20:03 Oxygen Flow Rate 0 01/24/23 20:03 Pain Level 8 01/24/23 20:03
[2023-01-24 20:20] LABS: Bilirubin Negative (Negative); Blood Negative (Negative); Clarity Clear (Clear); Glucose Negative (Negative); Ketones Trace mg/dL (Negative); Leukocyte Esterase Negative (Negative); Nitrite Negative (Negative); Specific Gravity 1.025 (1.005-1.025); Urobilinogen 0.2 mg/dL (Up to 0.2); pH 5.5 (5-8)
[2023-01-24] MEDS: Normal Saline 1,000 ML 1000 ML IV (20:23)
[2023-01-24 20:26] LABS: Abs Immature Grans 0.03 10^3/uL (0.0-0.06); Absolute Basophil Count 0.04 10^3/uL (0.0-0.2); Absolute Eosinophil Count 0.11 10^3/uL (0.0-0.7); Absolute Lymphocyte Count 2.79 10^3/uL (1.2-3.4); Absolute Monocyte Count 0.57 10^3/uL (0.1-0.8); Absolute Neutrophil Count 4.47 10^3/uL (1.2-6.7); Basophils % 0.5; Eosinophils % 1.4; HCT 38.6 % (36.0-46.0); HGB 13.1 g/dL (11.2-15.7); Immature Grans % 0.4; Lymphocytes % 34.8; MCH 30.6 pg (27.0-33.0); MCHC 33.9 % (32.0-36.0); MCV 90 fL (80-95); MPV 9.7 fL (8.0-11.0); Monocytes % 7.1; Neutrophils % 55.8; Platelet Count 298 10^3/uL (130-400); RBC 4.28 10^6/uL (3.93-5.22); RDW 12.7 % (11.7-14.6); RDW-SD 41.4 fL; WBC 8.01 10^3/uL (4.4-10.8)
[2023-01-24] MEDS: Ketorolac 15 MG/ML VIAL IVP (20:31)
[2023-01-24] MEDS: Ondansetron 4 MG/2 ML VIAL IVP (20:32)
[2023-01-24 20:35] VITALS: PULSE 53; RESP 15; O2SAT 98
[2023-01-24 20:40] VITALS: PULSE 52; RESP 13; O2SAT 98
[2023-01-24 20:50] VITALS: PULSE 54; RESP 18; O2SAT 97
[2023-01-24 20:50] LABS: ALT 27 U/L (14-59); AST 25 U/L (15-37); Albumin 4.3 g/dL (3.4-5.0); Alkaline Phosphatase 51 U/L (46-116); Anion Gap 11.3 mmol/L (3-11); BUN 13 mg/dL (7-18); Bilirubin, Total 0.4 mg/dL (0.2-1.0); CO2 23.7 mmol/L (21.0-32.0); CREATININE 0.9 mg/dL (0.55-1.02); Calcium 9.2 mg/dL (8.5-10.1); Chloride 105 mmol/L (98-107); Estimated GFR 81.35 (mL/min/1.73m2); Glucose 99 mg/dL (74-106); Lipase 43 U/L (16-77); Magnesium 2.2 mg/dL (1.8-2.4); Potassium 3.5 mmol/L (3.5-5.1); Sodium 140 mmol/L (136-145); TSH (W/Ref FT4) 1.97 uIU/mL (0.36-3.74); Total Protein 7.7 g/dL (6.4-8.2)
[2023-01-24] MEDS: Normal Saline - Diluent 50 ML VIAL IJ (21:04)
[2023-01-24] MEDS: Omnipaque 350 MG/ML 100 ML BTL IJ (21:04)
--- NOTE | 2023-01-24 21:37 | DI.VRAD_ITS ---
PROCEDURE INFORMATION: Exam: CT Abdomen And Pelvis With Contrast Exam date and time: 01/24/2023 9:05 PM Age: 42 years old Clinical indication: Abdominal pain; Localized; Right lower quadrant (rlq); Additional info: Right lower abdominal pain TECHNIQUE: Imaging protocol: Computed tomography of the abdomen and pelvis with contrast. Radiation optimization: All CT scans at this facility use at least one of these dose optimization techniques: automated exposure control; mA and/or kV adjustment per patient size (includes targeted exams where dose is matched to clinical indication); or iterative reconstruction. Contrast material: OMNI 350; Contrast volume: 100 ml; Contrast route: INTRAVENOUS (IV); COMPARISON: US PELVIS TRANSVAGINAL 01/10/2023 12:13 PM FINDINGS: Liver: Normal. Gallbladder and bile ducts: Normal. Pancreas: Normal. Spleen: Normal. Adrenal glands: Normal. No mass. Kidneys and ureters: Simple left renal cyst, for which no further evaluation necessary. Stomach and bowel: Several loops of nondilated, gas and fluid-filled small bowel, which is a nonspecific finding, but can be seen with enteritis. Appendix: Appendix normal. Intraperitoneal space: Small amount of pelvic free fluid, likely physiologic. Vasculature: Phleboliths within the pelvis. Lymph nodes: Unremarkable. No enlarged lymph nodes. Urinary bladder: Unremarkable as visualized. Reproductive: 15 mm right ovarian cyst. Bones/joints: 2.2 cm well-circumscribed mixed density the lucent focus within the left ilium, likely benign, such as enchondroma. No acute fracture. Soft tissues: Normal. IMPRESSION: 1. Several loops of nondilated, gas and fluid-filled small bowel, which is a nonspecific finding, but can be seen with enteritis. 2. 15 mm right ovarian cyst. Dictated and Authenticated by: Nba Trevino MD. Ordering:ARABELLA Zacarias MD
[2023-01-24] MEDS: Ondansetron O.D.T. 4 MG TABEF, 3 TABS/BTL PO (21:51)
[2023-01-24] MEDS: Amoxicillin 875/Clav. 125 TAB PO (21:51)
[2023-01-24 21:52] VITALS: BP 99/76; PULSE 71; RESP 18; O2SAT 100
== END 2023-01-24 22:00 | disposition home or self-care (01) ==
PROVIDERS: Emergency Provider Emergency Medicine; PCP Physician Assistant Medical
DX: R10.31 Right lower quadrant pain (principal); K52.9 Noninfective gastroenteritis and colitis, unspecified
CPT/HCPCS: 80053; 81025; 83690; 96360; 99285; 74177; 81003; 83735; 84443; 85025; 99283; J1885; J2405; J3490

== ENCOUNTER 2025-03-08 17:54 | Outpatient (REF) | payer OTHER, SELFPAY ==
[2025-03-08 19:08] LABS: Abs Immature Grans 0.04 10^3/uL (0.0-0.06); HCT 38.4 % (36.0-46.0); HGB 12.6 g/dL (11.2-15.7); Immature Grans % 0.4 %; MCH 30.4 pg (27.0-33.0); MCHC 32.8 % (32.0-36.0); MCV 93 fL (80-95); MPV 9.8 fL (8.0-11.0); Platelet Count 350 10^3/uL (130-400); RBC 4.15 10^6/uL (3.93-5.22); RDW 12.5 % (11.7-14.6); RDW-SD 42.5 fL; WBC 9.93 10^3/uL (4.4-10.8)
[2025-03-08 19:29] LABS: ALT 55 U/L (14-59); AST 24 U/L (15-37); Albumin 3.9 g/dL (3.4-5.0); Alkaline Phosphatase 72 U/L (46-116); Anion Gap 7.3 mmol/L (3-11); BUN 10 mg/dL (7-18); Bilirubin, Total 0.2 mg/dL (0.2-1.0); CO2 28.7 mmol/L (21.0-32.0); Calcium 9.1 mg/dL (8.5-10.1); Calculated LDL 125 mg/dL (<100); Chloride 103 mmol/L (98-107); Cholesterol 210 mg/dL (<200); Estimated GFR 92.54 (mL/min/1.73m2); Glucose 110 mg/dL (74-106); HDL Cholesterol 64 mg/dL (>or=50); Magnesium 2.3 mg/dL (1.8-2.4); Potassium 4.0 mmol/L (3.5-5.1); Sodium 139 mmol/L (136-145); TSH (W/Ref FT4) 0.95 uIU/mL (0.36-3.74); Total Protein 7.2 g/dL (6.4-8.2); Triglyceride 107 mg/dL (<150)
[2025-03-08 20:09] LABS: Hemoglobin A1C 5.3 % (<5.7)
== END 2025-03-08 17:55 | disposition home or self-care (01) ==
LOC: NCHCN 17:54
PROVIDERS: PCP Physician Assistant Medical; Visit Provider Physician Assistant Medical
DX: Z13.220 Encounter for screening for lipoid disorders (principal); Z13.1 Encounter for screening for diabetes mellitus; R07.9 Chest pain, unspecified
CPT/HCPCS: 80053; 80061; 83036; 83735; 84443; 85025